=== PATIENT | female | born 1975 | race Caucasian/White ===

== ENCOUNTER 2025-05-11 14:14 | Emergency (ER) | payer BC ==
[~2025-05-11] VITALS: Ht 157.5 cm; Wt 70.5 kg
[2025-05-11] MEDS: TETANUS/DIPHTH/ACEL. PERTUSSIS 0.5 ML SYR IM ONE (18:45)
[2025-05-11] MEDS: LIDOCAINE W/EPINEPHrine 1% 20 ML VIAL SC ONE (18:48)
[2025-05-11 19:18] VITALS: BP 135/88; TEMP 98; O2SAT 100
== END 2025-05-11 19:24 | disposition home or self-care (01) ==
LOC: M ED 14:14
DX: S71.112A Laceration without foreign body, left thigh, initial encounter (principal); W26.8XXA Contact with other sharp object(s), not elsewhere classified, initial encounter; G56.00 Carpal tunnel syndrome, unspecified upper limb; Z88.2 Allergy status to sulfonamides; Y92.89 Other specified places as the place of occurrence of the external cause; Y93.89 Activity, other specified; Y99.2 Volunteer activity; Z23 Encounter for immunization